=== PATIENT | female | born 1975 | race Caucasian/White ===

== ENCOUNTER 2022-09-13 00:52 | Day surgery (SDC) | payer OTHER, SELFPAY ==
[2022-09-13] VITALS (11 sets, daily range): BP systolic 124–153; BP diastolic 68–92; PULSE 62–117; RESP 16–20; TEMP 36.2–37; O2SAT 98–100; BMI 37.8
--- NOTE | ~2022-09-13 | US_ITS ---
EXAMINATION: US PELVIC AND TRANSVAGINAL CLINICAL INFORMATION: Dysfunctional uterine bleeding. COMPARISON: None TECHNIQUE: Ultrasound of the pelvis is performed using both transabdominal and transvaginal transducers along with Doppler. Transvaginal imaging is performed due to inadequate visualization transabdominally. FINDINGS: Uterus: The uterus is anteverted and measures 10.4 x 4.3 x 6.3 cm. The double wall endometrial thickness is 10 mm. Within the distal aspect of the endometrium, there is an ovoid, echogenic focus measuring 1.4 x 0.8 x 1.4 cm which may represent an endometrial polyp. Minimal internal Doppler detectable vascular flow. The uterus is smooth in contour and has normal myometrial echogenicity. No visible fibroid. Adnexa: Both ovaries are visualized. There is normal color-flow to the adnexa. There is no ovarian torsion. There is no pelvic ascites or fluid collection. Right ovary measures 4.0 x 2.0 x 2.1 cm. Ovarian volume of 8.8 mL. Simple right ovarian follicles. Left ovary measures 3.1 x 2.4 x 2.5 cm. Ovarian volume of 9.7 mL. Simple left ovarian follicles. US/US pelvic and transvaginal IMPRESSION: 1. Echogenic focus within the distal aspect of the endometrial cavity measuring up to 1.4 cm which may represent an endometrial polyp. Direct visualization could help further evaluate. 2. Sonographically unremarkable right and left ovary with bilateral ovarian follicles.
[2022-09-13 01:52] LABS: MANUAL DIFF FLAG NO
[2022-09-13 01:55] LABS: Basophils Absolute Auto 0.1 X10*3/uL (0.0-0.2); Basophils Percent Auto 0.6 % (0-2); Eosinophils Absolute Auto 0.1 X10*3/uL (0.0-0.4); Eosinophils Percent Auto 0.7 % (0-4); Hematocrit 33.4 % (37.0-47.0); Hemoglobin 11.3 g/dl (12.0-16.0); Imm Gran Abs Auto 0.05 X10*3/uL (0.00-0.03); Imm Gran Pct Auto 0.5 % (0.0-0.4); Lymphocytes Absolute Auto 1.5 X10*3/uL (1.2-4.9); Lymphocytes Percent Auto 14.2 % (20-40); Mean Corpuscular HGB Conc 33.8 g/dl (31.0-35.0); Mean Corpuscular Volume 85.9 fL (80.0-98.0); Mean Platelet Volume 9.4 fL (9.4-12.3); Monocytes Absolute Auto 0.5 X10*3/uL (0.1-1.2); Monocytes Percent Auto 5.1 % (2-11); Neutrophils Absolute Auto 8.3 x10*3/uL (2.0-8.3); Neutrophils Percent Auto 78.9 % (45-73); Platelet Count 326 X10*3/uL (160-400); Red Blood Count 3.89 X10*6/uL (4.20-5.50); Red Cell Distribution Width 12.7 % (11.0-16.0); White Blood Count 10.5 X10*3/uL (4.8-10.8)
[2022-09-13 02:30] LABS: Anion Gap 12 (12-20); Blood Urea Nitrogen 13 mg/dL (9-16); Carbon Dioxide 22 mmol/L (22-29); Chloride 106 mmol/L (96-108); Creatinine Clr Calc Pharmacy 91.5; Estimated Glomerular Filt Rate > 60; Glucose Random 113 mg/dL (60-115); Potassium 4.4 mmol/L (3.3-5.1); Sodium 136 mmol/L (135-145)
--- NOTE | 2022-09-13 05:27 | PC.NURSE ---
this rn assumed care of pt at 0422. VS documented at this time. pt reports bleeding through 10 pads. this rn reported this to dr stiles. Pt awaiting to be seen at this time
[2022-09-13 05:59] LABS: Influenza A PCR NEGATIVE (Negative); Influenza B PCR NEGATIVE (Negative); Resp Syncy Virus RNA Qual PCR NEGATIVE (Negative); SARS COV2 PCR INHOUSE NEGATIVE (Negative)
--- NOTE | 2022-09-13 06:05 | PC.NURSE ---
this rn assisted pt walking to bathroom. this rn provided pt with pull up brief to walk to toilet to aid in leaking from blood loss. pt ambulated with standby assist at this time. sheet and pads changed on bed. pt assisted back to bed at this time. pt reports no dizziness while ambulating. pt provided with blanket and call mayo at this time
--- NOTE | 2022-09-13 06:33 | ED.FEMALEGU ---
HPI - Female Genitourinary General Chief complaint: Vaginal Bleeding Stated complaint: vaginal bleeding Time Seen by Provider: 09/13/22 06:31 Source: patient Mode of arrival: ambulatory Limitations: no limitations History of Present Illness HPI Narrative: Patient with large vaginal bleeding with clots. Going through pad and is bright red. No prior dysfunctional uterine bleeding. Patient feels like it has slowed down a little but when she stands she had a big gush. MD elicited complaint: vaginal bleeding Severity: moderate Quality of pain: cramping Consistency: constant Related Data Allergies Allergy/AdvReac Type Severity Reaction Status Date / Time No Known Allergies Allergy Mild NOT Unverified 06/13/20 16:43 APPLICABLE Review of Systems Review of Systems: Yes all other systems are reviewed and are negative Genitourinary: Genitourinary: Reports abnormal vaginal bleeding Neurologic: Denies Sensory deficit (Neuro) [facility] Social History Social History Smoked in Last 30 Days: No Use of substances other than those prescribed or required for medical reasons: No Advance Directives: No Advance Directives Information Provided: No Patient : No Physical Exam Vital Signs: Vital Signs: Last Vital Signs Temp 98.2 F 09/13/22 07:48 Pulse 88 09/13/22 11:19 Resp 16 09/13/22 11:19 BP 153/80 H 09/13/22 11:19 Pulse Ox 100 09/13/22 11:19 O2 Del Method 09/13/22 11:19 BMI result Body Mass Index 37.8 Const: General: healthy appearing Nutritional Appearance: obese Orientation/consciousness: oriented to person and patient oriented x3 Limitations: no limitations HEENT: Head: Yes normal to inspection Ears: external ears normal General nose exam: Normal external nose present Mouth: Normal oral and palatal mucosa present and oropharynx normal Throat: Yes posterior oropharynx normal Eyes: General: appearance normal, both eyes and all related structures Neck: Other: supple Neck: Yes normal visual inspection Chest: Chest palpation & inspection: normal inspection of the chest Resp: Auscultation: clear to auscultation bilaterally Cardio: Jugular venous distension: no JVD Rate: regular rate Rhythm: regular rhythm Heart sounds: S1 normal heart sound present and S2 normal heart sound present GI: Inspection: Yes normal to inspection Palpation (GI): Soft to palpation, nontender and No hepatosplenomegaly present Auscultation: normal bowel sounds : Other: normal vagina, large clot at OS, continual bleeding from Os Skin: General skin exam: no rashes or lesions noted Neuro: General: oriented to person and patient oriented x3 Cranial nerves: Yes CN's II-XII intact bilaterally Motor exam (neuro): 5/5 motor strength present throughout Sensory Exam: No Sensory deficit (Neuro) Extrem: General: Yes normal to inspection Psych: Appearance: grossly normal Course Reevaluation(s) Reevaluation #1: Seen by Dr. Watson who found a vaginal laceration, he is going to suture Time: 10:23 Medications Administered Discontinued Medications Generic Name Dose Route Start Last Admin Trade Name Freq PRN Reason Stop Dose Admin Sodium Chloride 500 mls @ 250 mls/hr 09/13/22 07:00 09/13/22 09:49 Ns IVCONT 09/13/22 08:59 Infused .Q2H SKYLAR Infusion Lidocaine HCl 5 ml 09/13/22 10:22 09/13/22 11:19 Lidocaine Hcl 2 % Mpf 5 Ml Vial INFILTRATI 09/13/22 10:23 5 ml ONCE ONE Administration Lidocaine HCl 5 ml 09/13/22 10:22 09/13/22 11:19 Lidocaine Hcl 2 % Mpf 5 Ml Vial INFILTRATI 09/13/22 10:23 5 ml ONCE ONE Administration Medical Decision Making Lab Data Result Diagrams: 09/13/22 08:37 09/13/22 01:46 Labs: Lab Results 09/13/22 09/13/22 09/13/22 Range/Units 01:46 01:46 05:18 WBC 10.5 (4.8-10.8) X10*3/uL RBC 3.89 L (4.20-5.50) X10*6/uL Hgb 11.3 L (12.0-16.0) g/dl Hct 33.4 L (37.0-47.0) % MCV 85.9 (80.0-98.0) fL MCH 29.0 (27.0-33.0) pg MCHC 33.8 (31.0-35.0) g/dl RDW 12.7 (11.0-16.0) % Plt Count 326 (160-400) X10*3/uL MPV 9.4 (9.4-12.3) fL Immature Gran % (Auto) 0.5 H (0.0-0.4) % Neut % (Auto) 78.9 H (45-73) % Lymph % (Auto) 14.2 L (20-40) % Latimer % (Auto) 5.1 (2-11) % Eos % (Auto) 0.7 (0-4) % Baso % (Auto) 0.6 (0-2) % Lymph # (Auto) 1.5 (1.2-4.9) X10*3/uL Latimer # (Auto) 0.5 (0.1-1.2) X10*3/uL Eos # (Auto) 0.1 (0.0-0.4) X10*3/uL Baso # (Auto) 0.1 (0.0-0.2) X10*3/uL Abs Immat Gran (auto) 0.05 H (0.00-0.03) X10*3/uL Absolute Neuts (auto) 8.3 (2.0-8.3) x10*3/uL Absolute Nucleated RBC 0.000 (0.0-0.012) X10*3/uL Nucleated RBC % (auto) 0.0 (0.0-0.2) /100WBC Sodium 136 (135-145) mmol/L Potassium 4.4 (3.3-5.1) mmol/L Chloride 106 (96-108) mmol/L Carbon Dioxide 22 (22-29) mmol/L Anion Gap 12 (12-20) BUN 13 (9-16) mg/dL Creatinine 0.90 (0.5-1.4) mg/dL Estim Creat Clear Calc 91.5 Estimated GFR > 60 Random Glucose 113 (60-115) mg/dL Calcium 9.0 (8.4-10.2) mg/dL Beta HCG, Quant < 2 mIU/mL Influenza Type A (PCR) NEGATIVE (Negative) Influenza Type B (PCR) NEGATIVE (Negative) RSV RNA Qual (PCR) NEGATIVE (Negative) SARS-CoV-2 RNA (RT-PCR) NEGATIVE (Negative) Blood Type Antibody Screen Crossmatch 09/13/22 09/13/22 Range/Units 08:36 08:37 WBC 8.9 (4.8-10.8) X10*3/uL RBC 3.37 L (4.20-5.50) X10*6/uL Hgb 9.8 L (12.0-16.0) g/dl Hct 29.1 L (37.0-47.0) % MCV 86.4 (80.0-98.0) fL MCH 29.1 (27.0-33.0) pg MCHC 33.7 (31.0-35.0) g/dl RDW 12.8 (11.0-16.0) % Plt Count 283 (160-400) X10*3/uL MPV 9.6 (9.4-12.3) fL Immature Gran % (Auto) 0.2 (0.0-0.4) % Neut % (Auto) 76.0 H (45-73) % Lymph % (Auto) 17.8 L (20-40) % Latimer % (Auto) 5.0 (2-11) % Eos % (Auto) 0.3 (0-4) % Baso % (Auto) 0.7 (0-2) % Lymph # (Auto) 1.6 (1.2-4.9) X10*3/uL Latimer # (Auto) 0.4 (0.1-1.2) X10*3/uL Eos # (Auto) 0.0 (0.0-0.4) X10*3/uL Baso # (Auto) 0.1 (0.0-0.2) X10*3/uL Abs Immat Gran (auto) 0.02 (0.00-0.03) X10*3/uL Absolute Neuts (auto) 6.8 (2.0-8.3) x10*3/uL Absolute Nucleated RBC 0.000 (0.0-0.012) X10*3/uL Nucleated RBC % (auto) 0.0 (0.0-0.2) /100WBC Sodium (135-145) mmol/L Potassium (3.3-5.1) mmol/L Chloride (96-108) mmol/L Carbon Dioxide (22-29) mmol/L Anion Gap (12-20) BUN (9-16) mg/dL Creatinine (0.5-1.4) mg/dL Estim Creat Clear Calc Estimated GFR Random Glucose (60-115) mg/dL Calcium (8.4-10.2) mg/dL Beta HCG, Quant mIU/mL Influenza Type A (PCR) (Negative) Influenza Type B (PCR) (Negative) RSV RNA Qual (PCR) (Negative) SARS-CoV-2 RNA (RT-PCR) (Negative) Blood Type B Positive Antibody Screen NEGATIVE Crossmatch See Detail Radiology Impression Discussion of test interpretation with radiology: I have reviewed the radiologist's reading. Radiologist Impression: FINDINGS: Uterus: The uterus is anteverted and measures 10.4 x 4.3 x 6.3 cm.? The double wall endometrial thickness is 10 mm. Within the distal aspect of the endometrium, there is an ovoid, echogenic focus measuring 1.4 x 0.8 x 1.4 cm which may represent an endometrial polyp. Minimal internal Doppler detectable vascular flow. The uterus is smooth in contour and has normal myometrial echogenicity. No visible fibroid. Adnexa: Both ovaries are visualized. There is normal color-flow to the adnexa. There is no ovarian torsion. There is no pelvic ascites or fluid collection. Right ovary measures 4.0 x 2.0 x 2.1 cm. Ovarian volume of 8.8 mL. Simple right ovarian follicles. Left ovary measures 3.1 x 2.4 x 2.5 cm. Ovarian volume of 9.7 mL. Simple left ovarian follicles. US/US pelvic and transvaginal IMPRESSION: 1. Echogenic focus within the distal aspect of the endometrial cavity measuring up to 1.4 cm which may represent an endometrial polyp. Direct visualization could help further evaluate. ? 2. Sonographically unremarkable right and left ovary with bilateral ovarian follicles. Dictated By: Nathan Craig MD Signed By: <Electronically signed by Nathan Craig MD in OV> 09/13/22 0968 Discharge Plan Discharge Clinical Impression: Vaginal laceration, Anemia Patient Disposition: Admitted As Inpatient
--- NOTE | 2022-09-13 07:06 | PC.NURSE ---
this rn chaperoned MD dr sullivan during pelvic exam on pt. pt compliant and tolerate procedure well. awaiting md to place new orders at this time
[2022-09-13] MEDS: 0.9 % Sodium Chloride 500 ML 250 ML IVCONT (07:14)
[2022-09-13 07:30] LABS: HCG Quantitative < 2 mIU/mL
[2022-09-13 08:43] LABS: MANUAL DIFF FLAG NO
[2022-09-13 08:44] LABS: Basophils Absolute Auto 0.1 X10*3/uL (0.0-0.2); Basophils Percent Auto 0.7 % (0-2); Eosinophils Percent Auto 0.3 % (0-4); Hematocrit 29.1 % (37.0-47.0); Hemoglobin 9.8 g/dl (12.0-16.0); Imm Gran Abs Auto 0.02 X10*3/uL (0.00-0.03); Imm Gran Pct Auto 0.2 % (0.0-0.4); Lymphocytes Absolute Auto 1.6 X10*3/uL (1.2-4.9); Lymphocytes Percent Auto 17.8 % (20-40); Mean Corpuscular HGB Conc 33.7 g/dl (31.0-35.0); Mean Corpuscular Hemoglobin 29.1 pg (27.0-33.0); Mean Corpuscular Volume 86.4 fL (80.0-98.0); Mean Platelet Volume 9.6 fL (9.4-12.3); Monocytes Absolute Auto 0.4 X10*3/uL (0.1-1.2); Neutrophils Absolute Auto 6.8 x10*3/uL (2.0-8.3); Platelet Count 283 X10*3/uL (160-400); Red Blood Count 3.37 X10*6/uL (4.20-5.50); Red Cell Distribution Width 12.8 % (11.0-16.0); White Blood Count 8.9 X10*3/uL (4.8-10.8)
--- NOTE | 2022-09-13 09:27 | P.CONOB_ITS ---
DATA MODELING ARCHITECT - CN: HPI Data of Consult Consult date: 09/13/22 Primary Care Provider: Nonstaff Physician Consult Narrative Narrative: I was consulted on Annette Jones who is a 46 year old female who presented emergency room with heavy vaginal bleeding passage of large blood large blood since last night at 08:30 p.m. this was preceded by l intercourse. No other complaints. On arrival to emergency room at 1 46 H&H was 11.3/33.4, repeat H&H is 08:30 was 9.8/29 point cc:: CC: LOSS PREVENTION COORDINATOR - Review of Systems Review of Systems ROS Unobtainable: All systems reviewed & are unremarkable except as noted in HPI and below Cardiovascular: Denies Palpatations, Loss of consciousness or Chest pain Respiratory: Denies Cough, Wheezing or Shortness of breath Musculoskeletal: Denies Low back pain Gastrointestinal: Denies Heartburn, Constipation, Diarrhea, Nausea or Vomiting Genitourinary: Denies Pain with urination, Burning with urination or Urinary frequency Neurological: Denies Migranes Psychological: Denies Depression [facility] Social History Social History Smoked in Last 30 Days: No Use of substances other than those prescribed or required for medical reasons: No Advance Directives: No Advance Directives Information Provided: No Patient : No Meds Allergies Allergy/AdvReac Type Severity Reaction Status Date / Time No Known Allergies Allergy Mild NOT Unverified 06/13/20 16:43 APPLICABLE DATA MODELING ARCHITECT Physical Exam Vitals Vital signs: Temp Pulse Resp BP Pulse Ox O2 Del Method 98.2 F 75 20 128/70 98 09/13/22 07:48 09/13/22 07:48 09/13/22 07:48 09/13/22 07:48 09/13/22 07:48 09/13/22 07:48 BMI result Body Mass Index 37.8 Constitutional General Appearance: Healthy appearing, Well-nourished and Well-developed Psychiatric Mood and Affect: active and alert, normal mood and normal affect Skin Appearance: No rashes and No lesions Lungs Respiratory Effort: No intercostal retractions Auscultation: Clear to auscultation Cardiovascular Auscultation: RRR Abdomen Auscultation/Inspection/Palpation: Normal bowel sounds, Soft, Non-distended and No tenderness Female Genitalia (Pelvic) Vulva: No lesions Adnexa/Parametria: Adnexal Tenderness: None, Adnexal Mass: None, Parametrial Tenderness: None and Parametrial Mass: None Additional Comments: Left vaginal wall laceration bleeding from the introitus to the posterior fornix, no uterine bleeding DATA MODELING ARCHITECT - Results Labs CBC & Chem 7: 09/13/22 08:37 09/13/22 01:46 Labs: Short CBC 09/13/22 09/13/22 Range/Units 01:46 08:37 WBC 10.5 8.9 (4.8-10.8) X10*3/uL Hgb 11.3 L 9.8 L (12.0-16.0) g/dl Hct 33.4 L 29.1 L (37.0-47.0) % Plt Count 326 283 (160-400) X10*3/uL BMP 09/13/22 01:46 Sodium 136 Potassium 4.4 Chloride 106 Carbon Dioxide 22 BUN 13 Creatinine 0.90 Calcium 9.0 Antibody Screen Antibody Screen NEGATIVE 09/13/22 08:36 Assessment and Plan (1) Vaginal laceration: Status: Acute Discussed with the patient the finding on physical exam, recommended repair of left vaginal laceration under anaesthesia. All pros and cons, risks benefits and alternatives were discussed with the patient. Risks discussed with the patient include but not limited to bleeding, infection possibly for blood transfusion, possible injury to bladder, bowel or ureter. All questions answered, the patient verbalized understanding and signed the consent. (2) Anemia: Status: Acute Since last H&H was 9.8/29.1 and the patient is still active bleeding will transfuse 1 unit of packed RBCs, repeat H&H postop and decide if she needs another unit of packed RBC. Discussed with the patient the indication for packed RBC transfusion, the patient verbalized understanding and agreed with the plan Time Spent With Patient Time: Total time managing care of this patient today ____ minutes.
--- NOTE | 2022-09-13 10:11 | PC.NURSE ---
Dr Watson to bedside for pelvic exam with Domitila lemus as data operations leader
[2022-09-13] MEDS: Lidocaine HCl 2 % MPF 5 ML VIAL INFILTRATI ×2 (11:19)
--- NOTE | 2022-09-13 11:19 | PC.NURSE ---
Plan to take pt to OR for procedure. Pt aware/agreeable. Second IV access obtained 20g to right forearm.
--- NOTE | 2022-09-13 11:32 | HO.ANESPROP2 ---
HPI - Anesthesia Eval Consult details Narrative: Acute bleeding from vaginal laceration PMFSH Active Problems Active Problems: All Active Problems (Updated 09/13/22 @ 11:09 by Valeriano Watson MD) Anemia (Acute) Vaginal laceration (Acute) Family History Family history of problems with anesthesia: No Surgical History History of Problems with Anesthesia: No Social History Social History Smoked in Last 30 Days: No Use of substances other than those prescribed or required for medical reasons: No Advance Directives: No Advance Directives Information Provided: No Patient : No Meds Allergies Allergy/AdvReac Type Severity Reaction Status Date / Time No Known Allergies Allergy Mild NOT Unverified 06/13/20 16:43 APPLICABLE Exam Exam Date and Time: September 13, 2022 1132 Height,Weight and Vital Signs: Height 5 ft 4 in Weight 99.798 kg Last Vital Signs Temp 98.2 F 09/13/22 07:48 Pulse 88 09/13/22 11:19 Resp 16 09/13/22 11:19 BP 153/80 H 09/13/22 11:19 Pulse Ox 100 09/13/22 11:19 O2 Del Method 09/13/22 11:19 Pertinent Lab Results Pertinent Lab Results: Laboratory Tests 09/13/22 09/13/22 09/13/22 01:46 01:46 05:18 WBC 10.5 RBC 3.89 L Hgb 11.3 L Hct 33.4 L MCV 85.9 MCH 29.0 MCHC 33.8 RDW 12.7 Plt Count 326 MPV 9.4 Immature Gran % (Auto) 0.5 H Neut % (Auto) 78.9 H Lymph % (Auto) 14.2 L Graham % (Auto) 5.1 Eos % (Auto) 0.7 Baso % (Auto) 0.6 Lymph # (Auto) 1.5 Graham # (Auto) 0.5 Eos # (Auto) 0.1 Baso # (Auto) 0.1 Abs Immat Gran (auto) 0.05 H Absolute Neuts (auto) 8.3 Absolute Nucleated RBC 0.000 Nucleated RBC % (auto) 0.0 Sodium 136 Potassium 4.4 Chloride 106 Carbon Dioxide 22 Anion Gap 12 BUN 13 Creatinine 0.90 Estim Creat Clear Calc 91.5 Estimated GFR > 60 Random Glucose 113 Calcium 9.0 Beta HCG, Quant < 2 Influenza Type A (PCR) NEGATIVE Influenza Type B (PCR) NEGATIVE RSV RNA Qual (PCR) NEGATIVE SARS-CoV-2 RNA (RT-PCR) NEGATIVE Blood Type Antibody Screen Crossmatch 09/13/22 09/13/22 08:36 08:37 WBC 8.9 RBC 3.37 L Hgb 9.8 L Hct 29.1 L MCV 86.4 MCH 29.1 MCHC 33.7 RDW 12.8 Plt Count 283 MPV 9.6 Immature Gran % (Auto) 0.2 Neut % (Auto) 76.0 H Lymph % (Auto) 17.8 L Graham % (Auto) 5.0 Eos % (Auto) 0.3 Baso % (Auto) 0.7 Lymph # (Auto) 1.6 Graham # (Auto) 0.4 Eos # (Auto) 0.0 Baso # (Auto) 0.1 Abs Immat Gran (auto) 0.02 Absolute Neuts (auto) 6.8 Absolute Nucleated RBC 0.000 Nucleated RBC % (auto) 0.0 Sodium Potassium Chloride Carbon Dioxide Anion Gap BUN Creatinine Estim Creat Clear Calc Estimated GFR Random Glucose Calcium Beta HCG, Quant Influenza Type A (PCR) Influenza Type B (PCR) RSV RNA Qual (PCR) SARS-CoV-2 RNA (RT-PCR) Blood Type B Positive Antibody Screen NEGATIVE Crossmatch See Detail Airway Mallampati Class: II TM Dist: >3cm Neck ROM: Full Loose/Missing/Broken Teeth: No Heart: RRR Lungs: CTA Assessment and Plan Assessment Anesthesia Assessment: Anesthesia Plan Discussed and Chart Reviewed Final Anesthetic Review Family History of Problems with Anesthesia: No History of Problems with Anesthesia: No NPO: Yes ASA Class: I and Emergency Final Preanesthetic Review: No Changes in Pt Med Stat, Meds/Allgs Chart Reviewed, Consent Obtained/Reviewed and Anes Risks/Benef Reviewed Patient Risk: Low Procedure Risk: Low Anesthetic Plan Anesthetic Plan: GA Disposition: Standard PACU
--- NOTE | 2022-09-13 11:47 | PC.NURSE ---
Bleeding has slowed, minimal noted on pad. Pt will be transported to OR and per Dr Watson PRBC to be given in OR by anaesthsia.
--- NOTE | 2022-09-13 12:21 | PM.OP ---
Brief Operative Note Date of Service: 09/13/22 Pre-op diagnosis: Left 12 cm vaginal wall laceration from the introitus to the left posterior fornix Post-op diagnosis: same Procedure: left vaginal wall laceration repair Surgeon: Valeriano Watson MD Anesthesia: MAC Was an Rn First Assistant used for this Procedure?: No Estimated blood loss (mL): 100 Pathology: none sent Condition: stable Disposition: PACU
--- NOTE | 2022-09-13 12:22 | W.PM.OPN ---
Operative Note Operative Note Date of Service: 09/13/22 Narrative: Preop diagnosis: 12 cm left vaginal wall laceration, bleeding, from the introitus, to the left posterior fornix Operation: left vaginal wall laceration repair Postop diagnosis: the same Estimatedblood loss: 100 cc Anaesthesia:MAC complication: none Procedure: The patient was put in the dorsal lithotomy position, was scrubbed and draped in the usual sterile fashion, the bladder was drained with a red rubber catheter. A speculum was inserted inside the patient's vagina inspection revealed the left vaginal wall laceration 12 cm from the introitus, to the left posterior for next. Using Allis clamp,the apex of the laceration was grasped and using 3-0 Vicryl in running interlocking suture was used approximate the left vaginal wall laceration. At the end of the procedure, hemostasis was assured. All instruments were taken out from the patient vaginal cavity. The patient tolerated the procedure well and was transferred to the PACU in a stable condition.
== END 2022-09-13 14:09 | disposition home or self-care (01) ==
LOC: HO.ED 11:45 → HO.SSS 11:52
PROVIDERS: Emergency Provider Emergency Medicine; Visit Provider Obstetrics & Gynecology
PROC: (CPT 57200; principal; 2022-09-13 11:45)
DX: S31.41XA Laceration without foreign body of vagina and vulva, initial encounter (principal); X58.XXXA Exposure to other specified factors, initial encounter; D64.9 Anemia, unspecified; N93.9 Abnormal uterine and vaginal bleeding, unspecified; N83.02 Follicular cyst of left ovary; N83.01 Follicular cyst of right ovary; Z20.828 Contact with and (suspected) exposure to other viral communicable diseases; Z79.899 Other long term (current) drug therapy; Y93.89 Activity, other specified; Y92.9 Unspecified place or not applicable; Y99.8 Other external cause status
CPT/HCPCS: 57200; 0241U; 36415; 36430; 76830; 76856; 80048; 84702; 85025; 86850; 86900; 86901; 86923; 96360; 96361; 99285; J2405; J3010; P9016

== ENCOUNTER → 2022-09-29 15:03 | Outpatient (BNVA) | payer OTHER, SELFPAY | PROVIDERS: Visit Provider Obstetrics & Gynecology | DX: N84.0 Polyp of corpus uteri (principal) ==

== ENCOUNTER 2022-10-05 14:59 | Outpatient (REF) | payer OTHER, SELFPAY ==
[2022-10-07 16:57] LABS: HPV mRNA E6/E7 rflx Not Detected (Not Detected)
== END 2022-10-05 15:00 | disposition home or self-care (01) ==
LOC: HO.LNP 14:59
PROVIDERS: Visit Provider Obstetrics & Gynecology
DX: Z01.419 Encounter for gynecological examination (general) (routine) without abnormal findings (principal); Z11.51 Encounter for screening for human papillomavirus (HPV)
CPT/HCPCS: 87624; 88142

== ENCOUNTER 2022-10-09 11:03 | Day surgery (SDC) | payer OTHER, SELFPAY ==
[2022-10-06 11:36] VITALS: BMI 38.8
--- NOTE | 2022-10-08 10:06 | HO.ANESPROP2 ---
Documented by User: Cordelia Cohen NP 10/08/22 10:07 HPI - Anesthesia Eval Consult details Narrative: 46yo F for D&C Hysteroscopy, possible polypectomy,possible myomectomy PMFSH Active Problems Active Problems: All Active Problems (Updated 10/05/22 @ 15:16 by Valeriano Watson MD) Vaginal laceration (Acute) Anemia (Acute) Endometrial polyp (Acute) Well woman exam (Acute) Past Medical History Medical History Anemia Arthritis Family History Family history of problems with anesthesia: No Surgical History Surgical History History of Hx of vaginal surgery History of Problems with Anesthesia: No Social History Social History Patient Tobacco Use Status: Former Tobacco user Quit Date: 26 yr ago Use of substances other than those prescribed or required for medical reasons: No Are you DNR?: No Advance Directives: No Advance Directives Information Provided: Yes Meds Allergies Allergy/AdvReac Type Severity Reaction Status Date / Time No Known Allergies Allergy Mild NOT Verified 10/09/22 11:14 APPLICABLE Exam Exam Date and Time: October 08, 2022 1006 Height,Weight and Vital Signs: Height 5 ft 4.5 in Weight 104.326 kg Pertinent Lab Results Pertinent Lab Results: Laboratory Tests 09/13/22 09/13/22 01:46 08:37 WBC 8.9 Hgb 9.8 L Hct 29.1 L Plt Count 283 Sodium 136 Potassium 4.4 Chloride 106 Carbon Dioxide 22 BUN 13 Creatinine 0.90 Assessment and Plan Assessment Anesthesia Assessment: Chart Reviewed Final Anesthetic Review Family History of Problems with Anesthesia: No History of Problems with Anesthesia: No Documented by User: Nhung Ceja MD 10/09/22 12:35 PMFSH Past Medical History Medical History Anemia Arthritis Surgical History Surgical History History of Hx of vaginal surgery Social History Social History Patient Tobacco Use Status: Former Tobacco user Quit Date: 26 yr ago Use of substances other than those prescribed or required for medical reasons: No Are you DNR?: No Advance Directives: No Advance Directives Information Provided: Yes Meds Allergies Allergy/AdvReac Type Severity Reaction Status Date / Time No Known Allergies Allergy Mild NOT Verified 10/09/22 11:14 APPLICABLE Exam Airway Mallampati Class: II TM Dist: >3cm Neck ROM: Full Loose/Missing/Broken Teeth: No Heart: RRR Lungs: CTA Assessment and Plan Assessment Anesthesia Assessment: Anesthesia Plan Discussed Final Anesthetic Review ASA Class: II Final Preanesthetic Review: Meds/Allgs Chart Reviewed, Consent Obtained/Reviewed and Anes Risks/Benef Reviewed Patient Risk: Low Procedure Risk: Low Anesthetic Plan Anesthetic Plan: GA Disposition: Standard PACU
[2022-10-09 11:31] VITALS: BP 140/65; PULSE 64; RESP 15; TEMP 37.1; O2SAT 97
[2022-10-09 11:35] LABS: UPreg QC Valid YES; Urine Pregnancy NEGATIVE (NEGATIVE)
[2022-10-09] MEDS: Lactated Ringers 1,000 ML 100 ML IVCONT (11:42)
--- NOTE | 2022-10-09 12:04 | MHC.SHP ---
Pre-Procedural Eval Section A Date of Service: 10/09/22 The patient is an INPATIENT: No Changes since office visit: No Cold of Flu in the past 2 weeks, No New Medical Problems, No Changes in Medication and No Patient answered all questions The History & Physical has been completed within 30 days and I have reviewed it.: Yes Section B Chief Complaint: Polyp of corpus uteri Allergies: Allergies Allergy/AdvReac Type Severity Reaction Status Date / Time No Known Allergies Allergy Mild NOT Verified 10/09/22 11:14 APPLICABLE Plan Diagnosis/Plan: Unchanged I have reviewed the history and physical and performed a pertinent physical examination on my patient. No changes have occurred unless specified. Time Spent With Patient Time: Total time managing care of this patient today ____ minutes.
--- NOTE | 2022-10-09 12:38 | P.BOP_ITS ---
Brief Operative Note Date of Service: 10/09/22 Pre-op diagnosis: Abnormal endometrium by ultrasound Post-op diagnosis: same (Endometrial polyp) Procedure: Hysteroscopy D&C, Polypectomy Surgeon: Valeriano Watson MD Anesthesia: GLMA Was an Catalytic Converter Operator used for this Procedure?: No Estimated blood loss (mL): 0 Pathology: other (Endometrial Scrapping. Polyp) Condition: stable Disposition: PACU
--- NOTE | 2022-10-09 12:39 | W.PM.OPN ---
Operative Note Operative Note Date of Service: 10/09/22 Narrative: Preop Diagnosis: Abnormal endometrium by US Operation: Diagnostic Hysteroscopy, Dilataion & Curettage and polypectomy Post Op Diagnosis: Endometrial Polyp QBL: Minimal Anesthesia: GLMA Surgeon: Valeriano Watson MD Skilled Nursing Facility Counselor: None Complication: None Pathology: Endometrial Scrapings, Endometrial polyp Procedure: The patient was put in the dorsal lithotomy position, scrubbed, and draped in the usual manner. A sterile speculum was inserted in the patient's vagina. The anterior lip of the cervix was grasped with a single tooth tenaculum. The cervix was dilated up to 5 mm, then the scope was inserted in the patient's uterus. Inspection revealed endometrial polyp. The Myosure Reach device was used; it was introduced through the operative channel and polypectomy done with no complications. The scope was then taken out from the uterine cavity, sharp curettings was carried on with minimal to moderate amount of tissues retrieved. At the end of the procedure, all instruments were taken out of the patient uterine and vaginal cavity. The single tooth tenaculum was removed and homeostasis was assured using pressure,. The patient tolerated the procedure well and was transferred to the PACU in a stable condition.
[2022-10-09 12:43] VITALS: BP 150/84; PULSE 60; RESP 16; TEMP 36.6; O2SAT 100
[2022-10-09 12:48] VITALS: BP 166/87; PULSE 67; RESP 18; O2SAT 100
[2022-10-09 12:53] VITALS: BP 180/98; PULSE 74; RESP 17; O2SAT 98
[2022-10-09 12:58] VITALS: BP 156/87; PULSE 60; RESP 18; O2SAT 98
[2022-10-09] MEDS: Acetaminophen 325 MG TABLET 650 MG PO (13:10)
[2022-10-09 13:13] VITALS: BP 148/80; PULSE 85; RESP 18; TEMP 36.2; O2SAT 100
== END 2022-10-09 13:33 | disposition home or self-care (01) ==
PROVIDERS: Nurse Practitioner; Visit Provider Obstetrics & Gynecology
PROC: 0UDB8ZZ Extraction of Endometrium, Via Natural or Artificial Opening Endoscopic (ICD-10-PCS; CPT 58558; principal; 2022-10-09 13:30)
DX: N84.0 Polyp of corpus uteri (principal); D64.9 Anemia, unspecified; Z79.899 Other long term (current) drug therapy; Z98.890 Other specified postprocedural states
CPT/HCPCS: 58558; 81025; 88305; J1100; J2250; J2405; J3010

== ENCOUNTER → 2022-10-26 14:04 | Outpatient (BNVA) | payer OTHER, SELFPAY | PROVIDERS: Visit Provider Obstetrics & Gynecology | DX: Z13.89 Encounter for screening for other disorder (principal) ==

== ENCOUNTER 2022-11-12 11:56 | Emergency (ER) | payer OTHER, SELFPAY ==
--- NOTE | ~2022-11-12 | XR_ITS ---
EXAMINATION: XR KNEE, RIGHT CLINICAL INFORMATION: Fall with right knee pain COMPARISON: None TECHNIQUE: Four views of the right knee. FINDINGS: There is no evidence of acute fracture or dislocation of the right knee. No right knee effusion is appreciated. There is some mild spurring about the medial joint space compartment with eburnation. There is a well-circumscribed bony density overlying the posterior joint space measuring 5 mm in maximum dimension which may represent a loose body. There is a small amount of osteopenia with a little marginal sclerosis underlying the tibial spines which may be related to previous injury. XR/XR knee RT 4V IMPRESSION: No acute fracture, dislocation, or effusion of the right knee. Mild degenerative findings as described.
--- NOTE | ~2022-11-12 | US_ITS ---
EXAMINATION: US VENOUS ULTRASOUND WITH DOPPLER LOWER EXTREMITY, RIGHT CLINICAL INFORMATION: Status post fall with right knee pain, previous calf pain. COMPARISON: None TECHNIQUE: Ultrasound of the deep veins is performed from the hip to the calf with compression sonography and color and pulse Doppler assessment. Spectral analysis with color-flow imaging is performed. FINDINGS: There is normal venous compression and respiratory variation and augmented flow. The visualized common femoral vein, superficial femoral vein, profunda femoral vein, popliteal vein, and the trifurcation region shows no evidence of deep venous thrombosis. No right popliteal cyst. An anechoic collection is seen to the right of the anterior knee measuring approximately 5.8 x 1.2 x 5.7 cm. Color Doppler showed no abnormal vascular flow. US/US venous duplex LE RT IMPRESSION: 1. No evidence for deep venous thrombosis in the visualized veins of the right lower extremity. 2. Anechoic collection to the right of the anterior knee is nonspecific, but demonstrates benign features and could represent a joint effusion or resolving hematoma. Correlate with physical exam. If these findings persist or enlarge, short-term repeat targeted soft tissue ultrasound can be performed as clinically indicated to assess for change.
[2022-11-12 12:03] VITALS: BP 173/84; PULSE 95; RESP 20; TEMP 36.6; O2SAT 99; BMI 36.6
--- NOTE | 2022-11-12 12:04 | ED.LOWEXIN ---
HPI - Extremity Injury (Lower) General Chief Complaint: Extremity Problem <RUSS Dhillon Last Filed: 11/12/22 12:06> Stated Complaint: knee pain , ? dvt <RUSS Dhillon Last Filed: 11/12/22 12:06> Time Seen by Provider: 11/12/22 13:02 <RUSS Dhillon Last Filed: 11/12/22 12:06> Source: patient <RUSS Prasda Last Filed: 11/12/22 15:33> Mode of arrival: ambulatory <RUSS Prasad Last Filed: 11/12/22 15:33> History of Present Illness HPI Narrative: 46-year-old female with a past medical history of anemia, arthritis, presenting to the ED complaining of right knee pain S/P mechanical slip and fall onto knee 12 days ago after being pulled while walking dogs. Reports increasing pain behind knee radiating to right calf, sent to ED by PCP for DVT rule out. Reports increasing pain with ambulation/movement and palpation. Denies injury to other area, head trauma, LOC, numbness, tingling, weakness. Denies taking anticoagulation, recent travel, cigarette smoking, oral OCPs <RUSS Prasad Last Filed: 11/12/22 15:33> MD complaint: knee injury <RUSS Prasad Last Filed: 11/12/22 15:33> Related Data Home Medications: Previous Rx's Medication Instructions Recorded iron-vit C-vit B06-[id number] acid 100 1 tab PO TID 8 weeks #168 tabs 09/13/22 mg-250 mg-25 mcg-1 mg tablet (Iron) lidocaine 5 % topical patch 1 patch topical DAILY PRN pain #30 11/12/22 (Lidoderm) ea <RUSS Dhillon Last Filed: 11/12/22 12:06> Allergies/Adverse Reactions: Allergies Allergy/AdvReac Type Severity Reaction Status Date / Time No Known Allergies Allergy Mild NOT Verified 10/09/22 11:14 APPLICABLE <RUSS Dhillon Last Filed: 11/12/22 12:06> Review of Systems Review of Systems: Constitutional: No Fever, No Chills ENT/Mouth: No Ear Pain, No Nasal Congestion, No sore throat Cardiovascular: No Chest Pain, No SOB Respiratory: No Cough, No Sputum Gastrointestinal: No Nausea, No Vomiting, No Diarrhea, No Constipation, No Abdominal pain Musculoskeletal: + joint pain, No Myalgias, +Joint Swelling Skin: No Skin Lesions, No rash Neuro: No Weakness, No Numbness, No Paresthesias <RUSS Prasad - Last Filed: 11/12/22 15:33> Yes all other systems are reviewed and are negative <RUSS Prasad - Last Filed: 11/12/22 15:33> Constitutional: Constitutional: Reports as per HPI <RUSS Prasad - Last Filed: 11/12/22 15:33> [facility] Past Medical History Attestation statement: The following information was validated with the patient. <RUSS Prasad - Last Filed: 11/12/22 15:33> Medical History: Medical History Anemia Arthritis <RUSS Dhillon - Last Filed: 11/12/22 12:06> Surgical History: Surgical History History of Hx of vaginal surgery <RUSS Dhillon - Last Filed: 11/12/22 12:06> Social History Social History: Social History Patient Tobacco Use Status: Former Tobacco user Quit Date: 26 yr ago Advance Directives: No <RUSS Dhillon - Last Filed: 11/12/22 12:06> Physical Exam Vital Signs: Vital Signs: Last Vital Signs Temp 97.9 F 11/12/22 12:03 Pulse 95 11/12/22 12:03 Resp 20 11/12/22 12:03 BP 173/84 H 11/12/22 12:03 Pulse Ox 99 11/12/22 12:03 O2 Del Method 11/12/22 12:03 BMI result Body Mass Index 36.6 <RUSS Dhillon - Last Filed: 11/12/22 12:06> Vital Signs: Last Vital Signs Temp 97.9 F 11/12/22 12:03 Pulse 95 11/12/22 12:03 Resp 20 11/12/22 12:03 BP 173/84 H 11/12/22 12:03 Pulse Ox 99 11/12/22 12:03 O2 Del Method 11/12/22 12:03 BMI result Body Mass Index 36.6 <RUSS Prasad - Last Filed: 11/12/22 15:33> Vital Signs: Last Vital Signs Temp 97.9 F 11/12/22 12:03 Pulse 95 11/12/22 12:03 Resp 20 11/12/22 12:03 BP 173/84 H 11/12/22 12:03 Pulse Ox 99 11/12/22 12:03 O2 Del Method 11/12/22 12:03 BMI result Body Mass Index 36.6 <Brandon Alston MD - Last Filed: 11/19/22 16:23> Const: General: cooperative, healthy appearing and no acute distress <RUSS Prasad - Last Filed: 11/12/22 15:33> Orientation/consciousness: patient oriented x3 <RUSS Prasad - Last Filed: 11/12/22 15:33> Limitations: no limitations <RUSS Prasad - Last Filed: 11/12/22 15:33> HEENT: Head: Yes normal to inspection and Yes atraumatic <RUSS Prasad - Last Filed: 11/12/22 15:33> Ears: hearing grossly normal bilaterally <RUSS Prasad - Last Filed: 11/12/22 15:33> General nose exam: Normal external nose present <RUSS Prasad - Last Filed: 11/12/22 15:33> Face and sinus: Yes normal facial exam <RUSS Prasad - Last Filed: 11/12/22 15:33> Eyes: General: appearance normal, both eyes and all related structures <RUSS Prasad - Last Filed: 11/12/22 15:33> EOM: EOMs intact bilaterally <RUSS Prasad - Last Filed: 11/12/22 15:33> Neck: Neck: Yes normal visual inspection and Yes no meningeal signs <RUSS Prasad - Last Filed: 11/12/22 15:33> Resp: Effort & Inspection: normal respiratory effort and no respiratory distress <RUSS Prasad - Last Filed: 11/12/22 15:33> Cardio: Rate: regular rate <RUSS Prasad Last Filed: 11/12/22 15:33> Heart sounds: S1 normal heart sound present and S2 normal heart sound present <RUSS Prasad Last Filed: 11/12/22 15:33> Peripheral pulses: dorsalis pedis present <RUSS Prasad - Last Filed: 11/12/22 15:33> Skin: Rashes: no rashes <RUSS Prasad Last Filed: 11/12/22 15:33> Wounds: no wounds <RUSS Prasad Last Filed: 11/12/22 15:33> Neuro: General: patient oriented x3, tone normal and no meningeal signs <RUSS Prasad Last Filed: 11/12/22 15:33> Gait exam (Neuro): Normal gait present <RUSS Prasad Last Filed: 11/12/22 15:33> Extrem: Other: Right knee with noted effusion. Healing abrasions. Diffusely tender to palpation greatest to lateral aspect, ROM limited secondary to pain. Neurovascular intact distally. Mild right calf tenderness noted. No pitting edema. No erythema/warmth or crepitus <RUSS Prasad - Last Filed: 11/12/22 15:33> Course Course Course Narrative: E-12:05PM - 46yoF presenting to the ED with complaints of right knee pain swelling radiating to right calf x 12 days after she fell when she was walking her dog on ice. She denies head injury loss of consciousness. She went to her primary care provider prior to arrival and they were concerned for DVT therefore they sent her here for further evaluation treatment. She denies any cough or shortness of breath or any other symptoms complaints concerns injuries at this time. Plan: Venous duplex ultrasound of right lower extremity and right knee x-ray ordered at this time. Patient will be sent back to the waiting room to evaluate the ED. <RUSS Dhillon - Last Filed: 11/12/22 12:06> E-12:05PM - 46yoF presenting to the ED with complaints of right knee pain swelling radiating to right calf x 12 days after she fell when she was walking her dog on ice. She denies head injury loss of consciousness. She went to her primary care provider prior to arrival and they were concerned for DVT therefore they sent her here for further evaluation treatment. She denies any cough or shortness of breath or any other symptoms complaints concerns injuries at this time. Plan: Venous duplex ultrasound of right lower extremity and right knee x-ray ordered at this time. Patient will be sent back to the waiting room to evaluate the ED. 1433--US venous duplex LE RT IMPRESSION: 1.? No evidence for deep venous thrombosis in the visualized veins of the right lower extremity. 2.? Anechoic collection to the right of the anterior knee is nonspecific, but demonstrates benign features and could represent a joint effusion or resolving hematoma. Correlate with physical exam. ? If these findings persist or enlarge, short-term repeat targeted soft tissue ultrasound can be performed as clinically indicated to assess for change. ? >> suspect hematoma with history of trauma XR knee RT 4V IMPRESSION: No acute fracture, dislocation, or effusion of the right knee. Mild degenerative findings as described. >> patient placed in Amari wrap for compression instability, is to follow-up with PCP/Orthopedics ? <RUSS Prasad - Last Filed: 11/12/22 15:33> Medications Administered Discontinued Medications Generic Name Dose Route Start Last Admin Trade Name Freq PRN Reason Stop Dose Admin Ketorolac Tromethamine 30 mg 11/12/22 14:08 11/12/22 14:32 Ketorolac Tromethamine 30 Mg/Ml Vial IM 11/12/22 14:09 30 mg ONCE ONE Administration <RUSS Dhillon - Last Filed: 11/12/22 12:06> Medications Administered Discontinued Medications Generic Name Dose Route Start Last Admin Trade Name Freq PRN Reason Stop Dose Admin Ketorolac Tromethamine 30 mg 11/12/22 14:08 11/12/22 14:32 Ketorolac Tromethamine 30 Mg/Ml Vial IM 11/12/22 14:09 30 mg ONCE ONE Administration <RUSS Prasad - Last Filed: 11/12/22 15:33> Medications Administered Discontinued Medications Generic Name Dose Route Start Last Admin Trade Name Freq PRN Reason Stop Dose Admin Ketorolac Tromethamine 30 mg 11/12/22 14:08 11/12/22 14:32 Ketorolac Tromethamine 30 Mg/Ml Vial IM 11/12/22 14:09 30 mg ONCE ONE Administration <Brandon Alston MD - Last Filed: 11/19/22 16:23> Medical Decision Making Medical Decision Making MDM Narrative: 46-year-old female with a past medical history of anemia, arthritis, presenting to the ED complaining of right knee pain S/P mechanical slip and fall onto knee 12 days ago after being pulled while walking dogs. On exam vital signs stable, NAD, nontoxic appearing, physical exam as noted above. Concern for fracture vs hematoma vs DVT. No evidence of cellulitis. Low suspicion for septic joint/arthritis. Low suspicion for PE Plan: Knee x-ray, ultrasound Please refer to course for remaining clinical decision making, interpretation of labs/imaging results, and discussions with consultants and/or family members. <RUSS Prasad - Last Filed: 11/12/22 15:33> Differential Diagnosis Differential Diagnoses: The differential diagnosis associated with the presentation includes <RUSS Prasad - Last Filed: 11/12/22 15:33> As above <RUSS Prasad - Last Filed: 11/12/22 15:33> Radiology Impression Discussion of test interpretation with radiology: I have reviewed the radiologist's reading. <RUSS Prasad - Last Filed: 11/12/22 15:33> Prescription Management I considered prescription management with: Pain Medication <RUSS Prasad - Last Filed: 11/12/22 15:33> Attestation Attending Attestation: I reviewed BAG PATCHER/PA/Resident note, assessment and plan. I agree with the documentation, assessment and plan unless otherwise stated. <Brandon Alston MD - Last Filed: 11/19/22 16:23> Discharge Plan Discharge Clinical Impression: Traumatic hematoma of knee <RUSS Dhillon - Last Filed: 11/12/22 12:06> Patient Disposition: Home, Self-Care <RUSS Dhillon - Last Filed: 11/12/22 12:06> Instructions: Hematoma (ED) <RUSS Dhillon - Last Filed: 11/12/22 12:06> Additional Instructions: Your x-ray does not show any fracture or dislocation. Ultrasound does not show a blood clot however you do have a fluid collection to the right side of her knee likely hematoma due to her trauma. Ice and elevate Take Tylenol and Motrin at home for pain relief/inflammation relief Lidoderm patches are numbing patches, apply to painful area. Rest. Follow-up with her doctor and Orthopedics as needed <RUSS Dhillon - Last Filed: 11/12/22 12:06> Prescriptions: New lidocaine [Lidoderm] 5 % adhesive patch,medicated 1 patch topical DAILY MDD remove after 12 hours PRN (Reason: pain) Qty: 30 0RF Rx Instructions: leave on most painful area for up to 12 hrs No Action Iron 100 Plus [id number] il-[id number]-sid-mg tablet 1 tab PO TID 56 Days Qty: 168 0RF <RUSS Dhillon - Last Filed: 11/12/22 12:06> Referrals: [facility] [place] Orth[facility] Surgeons [Provider Group] - 1 week Meri Carter MD [Primary Care Provider] - <RUSS Dhillon - Last Filed: 11/12/22 12:06> Stand Alone Forms: Work/School Release <RUSS Dhillon - Last Filed: 11/12/22 12:06> Interventions: ED Discharge Assessment Last Done: 11/12/22 15:38 <RUSS Dhillon - Last Filed: 11/12/22 12:06> Discharge Date/Time: 11/12/22 15:38 <RUSS Dhillon - Last Filed: 11/12/22 12:06>
[2022-11-12] MEDS: Ketorolac Tromethamine 30 MG/ML VIAL IM (14:32)
== END 2022-11-12 15:38 | disposition home or self-care (01) ==
PROVIDERS: Emergency Provider Emergency Medicine; PCP Internal Medicine
DX: S80.01XA Contusion of right knee, initial encounter (principal); M25.561 Pain in right knee; R60.0 Localized edema; W01.0XXA Fall on same level from slipping, tripping and stumbling without subsequent striking against object, initial encounter; Y93.9 Activity, unspecified; Y92.9 Unspecified place or not applicable; Y99.9 Unspecified external cause status
CPT/HCPCS: 73564; 93971; 96372; 99283; 99284; J1885

== ENCOUNTER 2023-10-07 15:06 | Outpatient (AMB) | payer OTHER, SELFPAY ==
--- NOTE | 2023-10-07 15:16 | MHC.OFFVIS ---
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 No complaints. Last Pap/HPV was negative in 10/19 Last Mammogram was in 11/19 at [facility], the patient is scheduled for another screening mammogram in 11/20 No previous screening colonoscopy PFSH Medical History Arthritis Anemia Surgical History H/O dilation and curettage Hx of vaginal surgery History of Social History Household Members: Spouse and Children Housing: House Alcohol intake: never Patient Tobacco Use Status: Former Tobacco user Quit Date: 26 yr ago Current occupational status: employed Current occupation: Teacher Sexual orientation: Straight/Heterosexual Gender identity: Female Female Reproductive History Menstrual Age of Menarche: 14 Total pregnancies: 5 Full term: 1 Number of Living Children: 2 Ab spontaneous: 3 Date of last pap smear: 10/06/22 Review of Systems Const All systems reviewed & are unremarkable except as noted in HPI and below Card Reports as per HPI Resp Reports as per HPI GI Reports as per HPI and Reports no additional complaints Reports as per HPI Physical Exam Vital Signs: Last Vital Signs BP 142/80 H 10/07/23 15:17 BMI result Body Mass Index 38.3 Const General: cooperative, healthy appearing and comfortable Chest Chest palpation & inspection: normal inspection of the chest and normal palpation of entire chest wall Breast/axilla inspection: normal inspection of the breasts and normal inspection of the axillae Breast/axilla palpation: normal palpation of the breasts, normal palpation of the axillae and no axillary lymphadenopathy Resp Effort & Inspection: normal respiratory effort Auscultation: clear to auscultation bilaterally Percussion: percussion normal Cardio Palpation: normal PMI Rate: regular rate Rhythm: regular rhythm Heart sounds: no murmurs and no rubs Peripheral pulses: Peripheral pulses 2+ throughout GI Inspection: Yes normal to inspection Palpation (GI): Soft to palpation, nontender, no guarding, not rigid and No hepatosplenomegaly present Percussion: Yes normal to percussion Auscultation: normal bowel sounds Rectal Exam - Female: deferred General: Yes bladder normal to palpation External Female Exam: No lesion Speculum Exam - Vagina: normal appearance of the vagina, normal palpation, normal vaginal discharge and not erythematous Speculum Exam - Cervix: normal appearance of the cervix and normal palpation Bimanual exam- vagina & uterus: normal bimanual exam, normal palpation, uterine size normal, bladder normal to palpation, consistency normal and normal palpation Bimanual Exam- Adnexa, other: normal adnexae, no masses and no tenderness Assessment & Plan Assessment & Plan (1) Well woman exam: Code(s): Z01.419 - Encounter for gynecological examination (general) (routine) without abnormal findings Plan: Cotesting not indicated this year. Mammogram scheduled at [facility] in 11/20 Counseled the patient about the recommended dietary allowance of 1000 mg of Calcium & 600 IU of vitamin D. The patient was instructed to perform monthly self-breast exams and to schedule an annual exam in a year; Offered the patient referral to GI for screening colonoscopy, the patient would like to think about and get back to us All questions answered and the patient verbalized understanding. Instructed the patient to schedule annual exam in a year Coding Level of Care Code Est Pt Prev Care 40-64y(21893) Diagnoses Well woman exam Z01.419
[2023-10-07 15:17] VITALS: BP 142/80; BMI 38.3
== END 2023-10-07 15:40 | disposition home or self-care (01) ==
LOC: HO.HWS 15:06
PROVIDERS: PCP Internal Medicine; Visit Provider Obstetrics & Gynecology
DX: Z01.419 Encounter for gynecological examination (general) (routine) without abnormal findings (principal)
CPT/HCPCS: 99396

== ENCOUNTER → 2023-10-07 15:06 | Outpatient (BNVA) | payer OTHER, SELFPAY | PROVIDERS: PCP Internal Medicine; Visit Provider Obstetrics & Gynecology ==

== ENCOUNTER 2024-10-09 09:54 | Outpatient (AMB) | payer OTHER, SELFPAY ==
--- NOTE | 2024-10-09 09:54 | A.OFFVIS_ITS ---
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 No complaints. Last Pap/HPV was negative in 10/19 Last Mammogram was BI-RADS 1 in 04/19 No previous screening screening colonoscopy PFSH Medical History Arthritis Anemia Surgical History H/O dilation and curettage Hx of vaginal surgery History of Social History Household Members: Spouse and Children Housing: House Alcohol intake: never Patient Tobacco Use Status: Former Tobacco user Current occupational status: employed Current occupation: Teacher Sexual orientation: Straight/Heterosexual Gender identity: Female Female Reproductive History Menstrual Age of Menarche: 14 Date of last menstrual period: 10/06/24 Date of last pap smear: 10/06/22 Date of Mammogram: 04/14/24 Review of Systems Const All systems reviewed & are unremarkable except as noted in HPI and below Card Reports as per HPI Resp Reports as per HPI GI Reports as per HPI and Reports no additional complaints Reports as per HPI Physical Exam Vital Signs: Last Vital Signs BP 118/72 10/09/24 09:58 BMI result Body Mass Index 34.8 Const General: cooperative, healthy appearing and comfortable Chest Chest palpation & inspection: normal inspection of the chest and normal palpation of entire chest wall Breast/axilla inspection: normal inspection of the breasts and normal inspection of the axillae Breast/axilla palpation: normal palpation of the breasts, normal palpation of the axillae and no axillary lymphadenopathy Resp Effort & Inspection: normal respiratory effort Auscultation: clear to auscultation bilaterally Percussion: percussion normal Cardio Palpation: normal PMI Rate: regular rate Rhythm: regular rhythm Heart sounds: no murmurs and no rubs Peripheral pulses: Peripheral pulses 2+ throughout GI Inspection: Yes normal to inspection Palpation (GI): Soft to palpation, nontender, no guarding, not rigid and No hepatosplenomegaly present Percussion: Yes normal to percussion Auscultation: normal bowel sounds Rectal Exam - Female: deferred General: Yes bladder normal to palpation External Female Exam: No lesion Speculum Exam - Vagina: normal appearance of the vagina, normal palpation, normal vaginal discharge and not erythematous Speculum Exam - Cervix: normal appearance of the cervix and normal palpation Bimanual exam- vagina & uterus: normal bimanual exam, normal palpation, uterine size normal, bladder normal to palpation, consistency normal and normal palpation Bimanual Exam- Adnexa, other: normal adnexae, no masses and no tenderness Assessment & Plan Assessment & Plan (1) Well woman exam: Code(s): Z01.419 - Encounter for gynecological examination (general) (routine) without abnormal findings Category: Medical Plan: Cotesting not indicated. Instructions given the patient to schedule her next screening Mammogram in 04/20. Counseled the patient about the recommended dietary allowance of 1000 mg of Calcium & 600 IU of vitamin D. Recommended referral to GI for screening colonoscopy with the patient would like to think about it and get back to us The patient was instructed to perform monthly self-breast exams and to schedule an annual exam in a year; All questions answered and the patient verbalized understanding. Instructed the patient to schedule annual exam in a year Coding Level of Care Code Est Pt Prev Care 40-64y(92082) Diagnoses Well woman exam Z01.419
[2024-10-09 09:58] VITALS: BP 118/72; BMI 34.8
== END 2024-10-09 10:15 | disposition home or self-care (01) ==
LOC: HO.HWS 09:54
PROVIDERS: PCP Internal Medicine; Visit Provider Obstetrics & Gynecology
DX: Z01.419 Encounter for gynecological examination (general) (routine) without abnormal findings (principal)
CPT/HCPCS: 99396; 99459